=== PATIENT | male | born 1970 | race African-American/Black ===

== ENCOUNTER 2018-08-25 03:16 | Emergency (ER) | payer SELFPAY ==
[~2018-08-25] VITALS: Ht 182.9 cm; Wt 99.8 kg
[2018-08-25 03:29] VITALS: BP 146/97
[2018-08-25] MEDS ORDERED: IBUPROFEN600 MG ORAL (03:35)
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
[2018-08-25 04:35] VITALS: BP 138/92
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
== END 2018-08-25 04:36 | disposition home or self-care (01) ==
LOC: EMR 03:31
DX: F07.81 Postconcussional syndrome (principal); S16.1XXA Strain of muscle, fascia and tendon at neck level, initial encounter; S39.012A Strain of muscle, fascia and tendon of lower back, initial encounter; V43.52XA Car driver injured in collision with other type car in traffic accident, initial encounter; Y92.481 Parking lot as the place of occurrence of the external cause; G44.309 Post-traumatic headache, unspecified, not intractable
CPT/HCPCS: 70450; 99284